=== PATIENT | female | born 1960 | race Caucasian/White ===

== ENCOUNTER → 2023-11-11 13:31 | Outpatient (REF) | payer MEDICARE, SELFPAY | LOC: HWRAD 13:31 | PROVIDERS: ATTENDING PHYSICIAN Physician Assistant Medical | DX: Z13.820 Encounter for screening for osteoporosis (principal); Z78.0 Asymptomatic menopausal state; Z12.31 Encounter for screening mammogram for malignant neoplasm of breast | CPT/HCPCS: 77063; 77067; 77080 ==

== ENCOUNTER 2024-04-07 06:13 | Emergency (ER) | payer MEDICARE, SELFPAY ==
[2024-04-07 06:16] VITALS: BP 178/114
[2024-04-07 06:47] VITALS: BMI 24.2
--- NOTE | 2024-04-07 06:49 | ED.GENMED ---
History of Present Illness
General
Chief Complaint: Flank Pain
Time Seen by Provider: 04/07/24 06:27
History of Present Illness
History of Present Illness:
Patient is a 63-year-old woman with history of hypertension, hyperlipidemia, numbness tingling to the right lower extremity secondary to back problems presenting to the emergency department left flank pain. Patient states for the past week she has
had left-sided flank pain that occasionally wraps to her front towards her groin. She also notes that she has had decreased urine output. Denies any nausea vomiting. No rash. No fevers or chills. This never happened to her before. No trauma.
The pain does not radiate down her leg
Past History
Past History
ED Past Medical History: Hypercholesterolemia and Other (Chronic back pain); Negative Cancer
Social History
Tobacco: Smoker
Drug: None
Phy Exam
Physical Exam
Physical Exam:
GENERAL: in no acute distress
HEENT: normocephalic, extraocular movements intact, moist oral mucosa
NECK: normal inspection
RESPIRATORY: no respiratory distress, clear to auscultation bilaterally
CARDIOVASCULAR: regular rate and rhythm
ABDOMEN/: soft, non-distended, non-tender to palpation, no rebound or guarding, no CVA tenderness, no rash
EXTREMITIES: non-tender, no edema/swelling
NEUROLOGIC: awake and alert, moves all extremities
SKIN: warm
Course
Orders/Labs/Results
Orders:
Orders
04/07/24 06:37
CT Abd/pel Without Iv Or Oral Urgent
Comment:
Reason For Exam: left flank pain, decreased urine output
04/07/24 06:48
Basic Metabolic Panel Urgent
Complete Blood Count/With Diff Urgent
Urinalysis Reflex To Culture Urgent
Date Specimen was Collected: 04/07/24
Time Specimen was Collected: 06:44
Urine Microscopic Reflex Cult Urgent
04/07/24 07:40
Ketorolac [Toradol] 15 mg IV NOW STA
Abnormal Lab Results
04/07/24
06:48
WBC 12.2 H 10^3/uL
(4.8-10.8)
MCHC 32.8 L g/dL
(33.0-37.0)
Abs Immat Gran (auto) 0.1 H 10^3/uL
(0-0.05)
Absolute Neuts (auto) 7.1 H 10^3/uL
(1.4-6.5)
Absolute Lymphs (auto) 3.7 H 10^3/uL
(1.2-3.4)
Absolute Monos (auto) 0.9 H 10^3/uL
(0.1-0.6)
Immature Gran % 0.6 H %
(0-0.5)
Glucose 114 H mg/dl
(70-99)
Ur Occult Blood Reflex 4+ A
(Negative)
Urine RBC 21-25 A /HPF
(0-2)
04/07/24 06:48
04/07/24 06:48
Vital Signs
Initial and Last Documented VS:
Initial Vital Signs
Pulse Resp BP Pulse Ox
94 20 178/114 100
04/07/24 06:16 04/07/24 06:16 04/07/24 06:16 04/07/24 06:16
Last Documented Vital Signs
Pulse Resp BP Pulse Ox
94 20 178/114 100
04/07/24 06:16 04/07/24 06:16 04/07/24 06:16 04/07/24 06:16
MDM/Problems Addressed
Differential Diagnosis Includes:
Patient is a 63-year-old woman presenting to the emergency department 1 week of left-sided flank pain with associated decreased urine. Vitals are unremarkable and exam is shows no tenderness to palpation. Differential consists of UTI versus kidney
stone versus metabolic derangement. Considered shingles given the numbness tingling however no associated rash and this has been ongoing for 1 week. Will check blood work urine and obtain CT scan kidney stone protocol.
*Critical Care Note
Total Time (30-74mins, 75-104mins- exclusive of procedures): Not Applicable
Update Note
Update Note:
On reevaluation the pain has slightly improved with the Toradol. Blood work does show slightly elevated white count. BMP is unremarkable. Urine with some blood as well as RBC. Patient does state that she has history of hematuria and did
follow-up with a urologist 10 years ago and it was normal. CT scan with no evidence of stone but does have distal diverticulosis as well as a right renal lesion. Patient to follow-up with her primary care doctor. Patient aware to follow-up the
site where the numbness tingling is to evaluate for any rashes. Given that patient appears well and comfortable will discharge at this time with strict return precautions
ED Attending Note
-
Portions of this chart may have been created with voice recognition software.� Occasional wrong word or��sound alike� substitutions may have occurred due to the inherent limitations of voice recognition software.
Discharge Plan
Departure
Patient Disposition: Home (Routine Discharge)
Date of Disposition: 04/07/24
Time of Disposition: 08:44
Patient with high blood pressure during this ER visit?: Yes
Discharge Problem:
Flank pain
Instructions: Flank Pain (DC)
Prescriptions:
No Action
melatonin 5 MG tablet
5 mg PO HS
multivitamin Tablet
1 tab PO DAILY
atorvastatin 20 mg Tablet
20 mg PO QPM
metoprolol succinate 50 mg Tablet Extended Release 24 Hr
50 mg PO DAILY
cyanocobalamin (vitamin B-12) [Vitamin B-12] 500 mcg Tablet
500 mcg PO DAILY
coQ10 (ubiquinol) 100 mg Capsule
100 mg PO DAILY
Medical Marijuana
1 dose PO DAILY
acetaminophen 325 mg Tablet
650 mg PO Q6H PRN (Reason: pain)
naproxen sodium [Aleve] 220 mg Capsule
220 mg PO BID PRN (Reason: pain)
nicotine [Nicoderm] 7 mg/24 hr Patch 24 Hour
1 patch TRANSDERMAL Q24H
Referrals:
Maria Luisa Mckenzie PA-C [Family Provider] -
Activity Restrictions/Additional Instructions:
You were seen in the Emergency Department today for flank pain. Please make sure you call your primary care doctor as well as urologist for further evaluation.
We would like for you to follow up with your primary care physician for further evaluation. If you experience fever, worsening of your symptoms, or develop any other new or concerning symptoms, please return to the Emergency Department immediately.
Please see the attached sheet for additional information.
When a patient comes into the Emergency Department, many diagnostic studies such as x-rays & CT Scans are completed to identify injuries. During these diagnostic studies, there are sometimes things like cysts, nodules, tumors, etc. that are
'incidentally found' and seen on these studies. No further workup was required during your hospitalization for your incidental findings, but please follow-up with your Primary Care Physician/Specialist regarding the below incidental findings. Your
Primary Care Physician/Specialist will instruct you/guide you through any further workup.
Your incidental findings:
1.0 cm partially exophytic lateral right renal slightly high attenuation lesion. This most likely either represents a benign hyperdense cyst or solid lesion, cannot be differentiated on the basis of this study without intravenous contrast
Interventions
Interventions:
*Risk Screen - Suicide Last Done: 04/07/24 06:16
*General Assessment Last Done: 04/07/24 06:47
*Neglect/Abuse Screening Last Done: 04/07/24 06:16
ED- Fall Risk Assessment Last Done: 04/07/24 06:49
*ED COVID-19 Vaccine History Last Done: 04/07/24 06:47
YX-Epgjhj-Xqfsexobmd Assessment Last Done: 04/07/24 06:49
ED-Female Genitourinary Assessment Last Done: 04/07/24 06:49
Discharge Date and Time
Print Language: MACEDONIAN
[2024-04-07 07:00] LABS: % Basophils 0.7 % (0-2); % Eosinophils 3.2 % (0-6); % Immature Granulocytes 0.6 % (0-0.5); % Lymphocytes 30.1 % (20.5-51.1); % Monocytes 7.6 % (1.7-9.3); % Neutrophils 57.8 % (42.2-75.2); Absolute Basophils 0.1 10^3/uL (0-0.2); Absolute Eosinophils 0.4 10^3/uL (0-0.7); Absolute Immature Granulocytes 0.1 10^3/uL (0-0.05); Absolute Lymphocytes 3.7 10^3/uL (1.2-3.4); Absolute Monocytes 0.9 10^3/uL (0.1-0.6); Absolute Neutrophils 7.1 10^3/uL (1.4-6.5); Hematocrit 42.4 % (37.0-47.0); Hemoglobin 13.9 g/dL (12.0-16.0); Mean Corp Hgb Conc. 32.8 g/dL (33.0-37.0); Mean Corpuscular Hgb 30.8 pg (27.0-31.0); Mean Platelet Volume 10.2 fL (7.4-10.4); Nucleated Red Blood Cells % 0 %; Platelet Count 225 10^3/uL (130-400); Red Blood Cell Count 4.51 10^6/uL (4.20-5.40); Red Cell Dist. Width 12.4 % (11.5-14.5); White Blood Cell Count 12.2 10^3/uL (4.8-10.8)
[2024-04-07 07:08] LABS: Blood Urea Nitrogen 14 mg/dl (7-17); Calcium 9.6 mg/dl (8.4-10.2); Carbon Dioxide 28 mmol/L (22-30); Chloride 105 mmol/L (98-107); Estimated Creatinine Clearance 61 ml/min; Glucose 114 mg/dl (70-99); Potassium 3.9 mmol/L (3.5-5.1); Sodium 144 mmol/L (135-145); eGFR > 60.00
[2024-04-07 07:10] LABS: Urine Albumin Trace (Neg - Trace); Urine Bilirubin Negative (Negative); Urine Character Clear (Clear); Urine Color Yellow; Urine Glucose Negative (Negative); Urine Ketone Negative (Negative); Urine Leukocyte Negative (Negative); Urine Nitrite Negative (Negative); Urine Occult Blood 4+ (Negative); Urine Specific Gravity 1.015 (<1.030); Urine Urobilinogen Negative (Neg - 1+)
[2024-04-07 07:40] LABS: Urine Mucus Many
[2024-04-07 07:43] LABS: Urine Amorphous Seen; Urine Red Blood Cell 21-25 /HPF (0-2); Urine White Cell 0-2 /HPF (0-5)
[2024-04-07] MEDS: TORADOL 15 MG IV (08:34)
[2024-04-07 08:59] VITALS: BP 146/71
== END 2024-04-07 09:00 | disposition home or self-care (01) ==
LOC: EMR 06:13
PROVIDERS: EMERGENCY PHYSICIAN Student in an Organized Health Care Education/Training Program; FAMILY PHYSICIAN Physician Assistant Medical
DX: R10.9 Unspecified abdominal pain (principal); I10 Essential (primary) hypertension; E78.00 Pure hypercholesterolemia, unspecified; F17.200 Nicotine dependence, unspecified, uncomplicated
CPT/HCPCS: 96374; 99284; 74176; 80048; 81003; 81015; 85025

== ENCOUNTER → 2024-04-12 13:01 | Outpatient (REF) | payer MEDICARE, SELFPAY | LOC: HWRAD 13:01 | PROVIDERS: ATTENDING PHYSICIAN Internal Medicine; FAMILY PHYSICIAN Physician Assistant Medical; REFERRING PHYSICIAN Urology | DX: N28.9 Disorder of kidney and ureter, unspecified (principal) | CPT/HCPCS: 74178; Q9967 ==

== ENCOUNTER 2024-07-06 06:20 | Day surgery (SDC) | payer MEDICARE, SELFPAY | END 2024-07-06 14:59 | disposition home or self-care (01) | LOC: GI 06:20 | PROVIDERS: ATTENDING PHYSICIAN Internal Medicine | DX: R63.4 Abnormal weight loss (principal); K57.30 Diverticulosis of large intestine without perforation or abscess without bleeding; K64.8 Other hemorrhoids; R10.12 Left upper quadrant pain; K31.89 Other diseases of stomach and duodenum; K63.5 Polyp of colon; K29.70 Gastritis, unspecified, without bleeding | CPT/HCPCS: 45380; 43239; 88305; 88342 ==

== ENCOUNTER → 2024-07-28 15:39 | Outpatient (REF) | payer MEDICARE, SELFPAY | LOC: HWRCS 15:39 | PROVIDERS: ATTENDING PHYSICIAN Internal Medicine Cardiovascular Disease; FAMILY PHYSICIAN Physician Assistant Medical | DX: R07.2 Precordial pain (principal); R06.09 Other forms of dyspnea | CPT/HCPCS: 93306 ==

== ENCOUNTER → 2024-08-05 10:57 | Outpatient (REF) | payer MEDICARE, SELFPAY | LOC: HWRCS 10:57 | PROVIDERS: ATTENDING PHYSICIAN Internal Medicine Cardiovascular Disease; FAMILY PHYSICIAN Physician Assistant Medical | DX: R07.2 Precordial pain (principal); R06.09 Other forms of dyspnea | CPT/HCPCS: 78452; 93017; A9500; J2785 ==